=== PATIENT | male | born 1950 ===

== ENCOUNTER 2024-05-23 11:15 | Inpatient (IN) | payer OTHER ==
[~2024-05-23] VITALS: Ht 152.4 cm; Wt 72.6 kg
[~2024-05-23 11:15] MED LIST: ALPRAZOLAM ODT2 MG PO; AZOR 10-40 MG1 EACH; LEVOXYL150 MCG PO; NOXIFOL-D32500 UNIT PO; PROSCAR5 MG PO; TAMS0.4C PO; VITAMIN B122500 MCG PO
[2024-05-23 15:47] LABS: COL EPI 89 SECONDS (82-175)
[2024-06-01] MEDS ORDERED: POVIDONE-IODINE 118 ML BOTT TOP ONE (15:10)
[2024-06-01] MEDS ORDERED: BUPIVACAINE HCL/MPF 0.5% 30ML VIAL ONE (15:10)
[2024-06-01] MEDS ORDERED: METRONIDAZOLE/SODIUM CHLORIDE 500 MG/100 ML PIGGYBACK IV ONE (15:11)
[2024-06-01] MEDS ORDERED: CEFTRIAXONE SODIUM 2,000 MG VIAL ONE (15:11)
[2024-06-01] MEDS ORDERED: LIDOCAINE HCL 1%/EPINEPHRINE 20ML VIAL IJ ONE (15:11)
[2024-06-01] MEDS ORDERED: DEXTROSE 50 % IN WATER 0.5 G/ML DISP.SYRIN IV PRN (16:45)
[2024-06-01] MEDS ORDERED: MORPHINE SULFATE 4 MG/ML CARTRIDGE IV PRN (16:45)
[2024-06-01] MEDS ORDERED: RINGERS SOLUTION,LACTATED 1,000 ML IV SCH (16:45)
[2024-06-01] MEDS ORDERED: ONDANSETRON HCL 2 MG/ML VIAL IV PRN (16:45)
[2024-06-01] MEDS ORDERED: OxyCODONE HCL 5 MG TABLET (ROXICODONE) PO PRN (16:45)
[2024-06-01] MEDS ORDERED: GABAPENTIN 300 MG CAPSULE PO SCH (17:00)
[2024-06-01] MEDS ORDERED: ENALAPRILAT DIHYDRATE 1.25 MG/ML VIAL IV PRN (17:15)
[2024-06-01] MEDS ORDERED: ACETAMINOPHEN 500 MG GEL..CAP PO SCH (20:00)
[2024-06-01] MEDS ORDERED: FAMOTIDINE/PF 20 MG/2 ML VIAL ONE (20:51)
[2024-06-01] MEDS ORDERED: TAMSULOSIN HCL 0.4 MG CAP PO SCH (21:00)
[2024-06-01] MEDS ORDERED: FAMOTIDINE/PF 20 MG/2 ML VIAL IV PUSH SCH (21:00)
[2024-06-01 21:50] LABS: HEMATOCRIT 47.3 % (39.0-48.0); HEMOGLOBIN 15.7 g/dL (13-16.00); MEAN CELL VOLUME 90.7 fL (80.0-100.00); MEAN CORPUSCULAR HGB CONC 33.1 g/dl (32.0-36.0); PLATELET COUNT 130 K/uL (150-450); RED BLOOD COUNT 5.22 M/uL (4.00-6.00); RED CELL DISTRIBUTION WIDTH 14.3 % (11.5-14.5)
[2024-06-01 22:05] LABS: POTASSIUM 4.66 mEq/L (3.5-5.1)
[2024-06-01 22:07] LABS: CALCIUM 8.9 mg/dL (8.5-10.1)
[2024-06-01 22:09] LABS: ALBUMIN 3.5 gm/dL (3.4-5.0); MAGNESIUM 2.2 mg/dL (1.8-2.4)
[2024-06-01 22:11] LABS: CREATININE SERUM 1.1 mg/dL (0.70-1.30); GFR 65.44; PHOSPHOROUS 3.4 mg/dL (2.5-4.9)
[2024-06-02 01:20] VITALS: BP 135/76; O2SAT 97
[2024-06-02] MEDS ORDERED: INTESTINEX680 M1 PO (05:29)
[2024-06-02] MEDS ORDERED: CELECOXIB200 MG PO (05:30)
[2024-06-02] MEDS ORDERED: LEVOTHYROXINE SODIUM 150 MCG TABLET PO SCH (06:00)
[2024-06-02 07:58] LABS: ALBUMIN 3.1 gm/dL (3.4-5.0); CALCIUM 8.2 mg/dL (8.5-10.1); CREATININE SERUM 1.02 mg/dL (0.70-1.30); GFR 71.39; MAGNESIUM 2.1 mg/dL (1.8-2.4); PHOSPHOROUS 2.7 mg/dL (2.5-4.9); POTASSIUM 3.83 mEq/L (3.5-5.1)
[2024-06-02 08:08] LABS: HEMATOCRIT 43.8 % (39.0-48.0); HEMOGLOBIN 14.8 g/dL (13-16.00); MEAN CELL VOLUME 89.6 fL (80.0-100.00); MEAN CORPUSCULAR HEMOGLOBIN 30.3 pg (27.00-32.0); MEAN CORPUSCULAR HGB CONC 33.8 g/dl (32.0-36.0); RED BLOOD COUNT 4.89 M/uL (4.00-6.00); RED CELL DISTRIBUTION WIDTH 13.9 % (11.5-14.5)
[2024-06-02 08:10] LABS: PLATELET COUNT 119 K/uL (150-450)
[2024-06-02] MEDS ORDERED: FINASTERIDE 5 MG TABLET PO SCH (09:00)
[2024-06-02] MEDS ORDERED: AMLODIPINE BESYLATE 10 MG TABLET PO SCH (09:00)
[2024-06-02] MEDS ORDERED: ENOXAPARIN SODIUM 40 MG/0.4 ML SYRINGE SUBCUTANEO SCH (17:00)
[2024-06-03] MEDS ORDERED: ENOXAPARIN SODIUM 40 MG/0.4 ML SYRINGE SUBCUTANEO SCH (09:00)
== END 2024-06-02 11:34 | disposition home or self-care (01) | DRG 331 ==
LOC: SURH 06-01 07:00 → O/R 06-01 11:32 → SURH 06-01 12:00 → SURG 06-01 16:56
PROVIDERS: ADMIT Surgery; ATTEND Surgery
PROC: 0DTH4ZZ Resection of Cecum, Percutaneous Endoscopic Approach (ICD-10-PCS; principal; 2024-06-01 07:00)
DX: D12.1 Benign neoplasm of appendix (principal); E03.9 Hypothyroidism, unspecified; I10 Essential (primary) hypertension; G47.00 Insomnia, unspecified; N40.0 Benign prostatic hyperplasia without lower urinary tract symptoms; M19.90 Unspecified osteoarthritis, unspecified site